=== PATIENT | female | born 2000 ===

== ENCOUNTER 2023-05-22 08:41 | Outpatient (CLI) | payer OTHER, SELFPAY ==
[2023-06-07 13:26] VITALS: BMI 30.1
--- NOTE | 2023-06-07 13:26 | WPDSLEEPSTUD ---
Sleep Study Date of Study: 05/22/23 Ordering Provider: Livan Brock Interpreting Physician: Maria Dolores Reyes DO Sleep Study Type: Polysomnogram Height: 1.6 m Weight: 77.111 kg Body Mass Index: 30.1 Neck Circumference (inches): 15 [place]: 16 Reason for Sleep Study Excessive daytime sleepiness Sleep History The patient is a 22-year-old female with hypertension, GERD, anxiety, OCD, PTSD, irritable bowel syndrome, PCOS and seasonal allergies that had a sleep study ordered by her ENT for evaluation of excessive daytime sleepiness. The patient rarely awakens from sleep short of breath. She denies awakening at night with heartburn, belching or cough. She occasionally snores but it is never loud enough that others complain. She occasionally has trouble sleeping when she has a cold. She denies waking up gasping for air throughout the night. She rarely has breathing problems at night observed by herself or others. She frequently sweats excessively at night. She occasionally has heart palpitations or irregular heartbeats during the night. She frequently falls asleep during the day but never while driving. She occasionally experiences loss of muscle tone when extremely emotional. She frequently has trouble at school or work due to sleepiness. She occasionally feels unable to move while waking up or falling asleep. She frequently experiences vivid dreamlike scenes upon awakening or falling asleep. She denies feeling afraid of going to sleep. She rarely has nightmares. She occasionally remembers her dreams. She frequently has thoughts racing through her mind. She rarely feels sad or depressed. She frequently has anxiety. She occasionally has muscular tension. She rarely notices parts of her body jerk. She rarely kicks during the night. She denies having crawling and aching feelings in her legs and denies having leg pain during the night. She occasionally grinds her teeth during sleep but never awakens with morning jaw pain. She is frequently bothered by pain during the day but rarely awakened by pain during the night. She occasionally wakes up feeling stiff in the morning. She frequently wakes up with sore or achy muscles. She occasionally wakes up with pain in the neck, spine and other joints. She goes to bed between 9-11 p.m. on weekdays and between 10:00 p.m. to 12:00 a.m. on the weekends. It takes her 10-30 minutes to fall asleep. She wakes up 3-5 times throughout the night for unknown reasons but is able to fall back asleep within a few minutes. She wakes up between 6-10 a.m. on weekdays and between 10-11 a.m. on the weekends. She typically gets 10-12 hours of sleep per night. She will stay in bed for 10-30 minutes after waking up in the morning. She currently lives with her mother. He denies consuming any caffeinated beverages within 2 hours of bedtime. She denies engaging in physical exercise before bedtime. She will watch television before falling asleep. She will take naps in the afternoon or the evening but they are not refreshing. She consumes 1-2 caffeinated beverages up to 4 days per week. She denies tobacco, alcohol and recreational drug use. Sleep Procedure A full night polysomnogram using the [employer]SEEK multi-channel system recorded the standard physiologic parameters including EEG, EOG, submentalis EMG, anterior tibialis EMG, EKG, body position, nasal and oral airflow using nasal pressure sensor and thermistor.? Respiratory parameters of chest and abdominal movements were recorded with Respiratory Inductance Plethysmography belts. Oxygen saturation was recorded by pulse oximetry. Video monitoring was also performed. Sleep stages, periodic limb movements, and EEG arousals were scored in 30 second epochs according to the criteria of the AASM Scoring Manual. The Apnea-Hypopnea Index was calculated using [facility] guidelines for definition of hypopnea with 4% O2 desaturations while scoring respiratory events. Leo
[2023-06-07 13:42] VITALS: BMI 30.1
--- NOTE | 2023-06-07 13:42 | P.SLEEP_ITS ---
Sleep Study Date of Study: 05/22/23 Ordering Provider: Livan Brock Interpreting Physician: Maria Dolores Reyes DO Sleep Study Type: Multiple Sleep Latency Test Height: 1.6 m Weight: 77.111 kg Body Mass Index: 30.1 Neck Circumference (inches): 15 [place]: 16 Reason for Sleep Study Excessive daytime sleepiness Sleep History Please see sleep history on PSG report from the previous night. Sleep Procedure The recording montage for the MSLT includes frontal (F3-M2 or F4-M1), central (C3-M2 or C4-M1), occipital (O1-M2 or O2-M1) derivations, left and right eye EO Gs, mental/submental EMG, and EKG.? Sleep Architecture Nap Summary: Nap trials started at 07:00:14 AM following an overnight polysomnogram that ende d at 05:29:13 AM from an overnight PSG with an overall Apnea Hypopnea index of 2.2 events per hour. Sleep onset REM (SOREM) did not occur during the overnight polysomnogram. Nap 1 commenced at 07:00:14 AM. Sleep latency was 17.5 minutes. REM sleep did not occur. Total sleep time was 11.5 minutes. Nap was terminated at 07:30:12 AM. The patient reported that sleep did occur. The patient reported that dreaming did not occur. Nap 2 commenced at 09:00:14 AM. Sleep latency was 11.5 minutes. REM sleep did not occur. Total sleep time was 13.5. Nap was terminated at 09:27:10 AM. The patient reported that sleep did occur. The patient reported that dreaming did not occur. Nap 3 commenced at 11:04:44 AM. Sleep latency was 7 minutes. REM sleep did not occur. Total sleep time was 15 minutes. Nap was terminated at 11:27:12 AM. ?The patient reported that sleep did occur. The patient reported that dreaming did not occur. Nap 4 commenced at 12:59:44 PM. Sleep latency was 14 minutes. REM sleep did not occur. Total sleep time was 15 minutes. Nap was terminated at 01:29:11 PM. ? The patient reported that sleep did occur. The patient was unsure if dreaming occurred. Nap 5 commenced at 03:06:14 PM. Sleep latency was 9 minutes. REM sleep did not occur. Total sleep time was 14 minutes. Nap was terminated at 03:31:29 PM. The patient reported that sleep did occur. The patient was unsure if dreaming occurred. The patient achieved sleep in 5 of 5 nap opportunities. The overall average sleep latency was 11.8 minutes. The patient achieved REM sleep (SOREM) in 0 naps. Respiratory Analysis N/A Arousals N/A Periodic Limb Movements N/A Oximetry Data N/A Snoring Profile N/A Cardiac Profile N/A EEG Profile EEG was normal and showed no signs of seizure activity. Assessment and Plan Assessment and Plan (1) Excessive daytime sleepiness: Code(s): G47.19 - Other hypersomnia Status: Acute Assessment and Plan: The patient achieved sleep in 5 of 5 nap opportunities. The overall average sleep latency was 11.8 minutes. The patient achieved REM sleep (SOREM) in 0 naps. On her polysomnogram from the previous night, she had a sleep latency of 10.6 minutes and no SOREM was seen. These findings do not meet the criteria for narcolepsy. Data The data obtained during this sleep study is adequate for interpretation. Certification This sleep study has been reviewed by a board certified sleep medicine physician.
== END 2023-05-23 16:00 | disposition home or self-care (01) ==
LOC: ANHCSM 08:44
DX: G47.19 Other hypersomnia (principal); G47.419 Narcolepsy without cataplexy
CPT/HCPCS: 95805; 95810